=== PATIENT | male | born 1935 | race Caucasian/White ===

== ENCOUNTER 2016-11-25 09:29 | Observation (INO) | payer MEDICARE ==
[2016-11-25] VITALS (8 sets, daily range): BP systolic 121–141; BP diastolic 45–75; PULSE 60–77; RESP 15–20; O2SAT 96–99
[~2016-11-25] VITALS: Ht 175.3 cm; Wt 81.9 kg
[~2016-11-25 09:29] MED LIST: CHOL10008 PO; CITA10TA14 PO; FLC50T PO; METO25TA6 PO; MIRA25TA PO; OMEG-38 PO; PRO5 PO; WARF4TAB2 PO; juice plus PO
--- NOTE | 2016-11-25 09:39 | ED.REPORT ---
HPI-General Illness Date of Service Nov 25, 2016 ED Provider: Mateo Aden Patient is an 81 year old male with a hx of HTN and Afib with a pacemaker on Coumadin who presents to the ED complaining of chest pain onset a week ago. His pain started as intermittent R sided discomfort that has progressively gotten worse and is now radiating to the left side. The episodes last for a few minutes and are exacerbated with activity. Associated symptoms include dizziness and SOB with episodes. He denies abdominal pain, vomiting, diarrhea, fever, chills, cough, sputum, or any other symptoms. His dry box operator is Susan PCP Dr. Garcia. Nursing Notes Stated Complaint: HEART ISSUE Nursing Notes Reviewed: Yes Allergies: Coded Allergies: atorvastatin (Verified Allergy, Severe, PROBABLE REASON FOR THIS ADMISSSION 04/18, 01/13/16) prednisone (Verified Allergy, Severe, 01/13/16) ezetimibe (Verified Allergy, Intermediate, facial flushing, 01/13/16) Scheduled Flecainide Acetate (Flecainide Acetate) 50 Mg Tablet 50 MG PO BID Metoprolol Tartrate (Metoprolol Tartrate) 25 Mg Tablet 25 MG PO BID Mirabegron ER (Myrbetriq) 25 Mg Tablet 25 MG PO DAILY General Time Seen by MD: 09:38 Chief Complaint Chest pain Hx Obtained From: Patient, Spouse Arrived By: Walk-in Sudden in Onset?: No Onset Occurred: 1 week ago Symptom Duration: Since onset Past Medical History Past Medical History Notes: On Coumadin Past Medical History Afib HTN Arthritis Past Surgical History abd hernia repair R knee pacemaker insertion Smoking History Unknown if Ever Smoker Social History Other Social History: Ambulatory Status Independent Review of Systems Full Review of Systems Constitutional: Denies: Chills, Fever Respiratory: Reports: Shortness of breath, Denies: Non-productive cough, Prod cough, yellow Cardiovascular: Reports: Chest pain GI: Denies: Abdominal pain, Diarrhea, Vomiting Neurologic: Reports: Dizziness Complete sys rev & neg: except as marked. Physical Exam Vital Signs Vital Signs Date Time Temp Pulse Resp B/P Pulse Ox O2 Delivery O2 Flow Rate FiO2 11/25/16 11:45 36.8 77 20 121/45 99 Room Air 11/25/16 09:39 36.8 62 20 141/75 98 Room Air Initial VS: Reviewed Head / Eyes: Atraumatic, Normocephalic Respiratory: Breath sounds normal, Clear to auscultation, No respiratory distress Abdomen / GI: Soft, Non-tender Skin: Warm, Dry Neurologic: Alert, Oriented, Nonfocal Psychiatric: Mood/affect normal, Behavior normal, Normal thought content General/Constitutional: Awake, Alert, No acute distress Neck: Supple, Full range of motion, No JVD Cardiovascular: Heart rate NL Lower Extremity / Pelvis / MS: No edema Interpretation & Diagnostics Lab Results Interpretation Result Diagram: 11/25/16 0945 11/25/16 0945 Test 11/25/16 09:45 White Blood Count 6.7th/mm3 (3.8-10.1) Red Blood Count 4.84mil/mm3 (4.40-5.80) Hemoglobin 15.1g/dL (13.8-17.2) Hematocrit 45.1% (41.0-50.0) Mean Corpuscular Volume 93.2fL (81-100) Mean Corpuscular Hemoglobin 31.2pg (27.0-35.0) Mean Corpuscular Hemoglobin Concent 33.5% (32.0-37.0) Red Cell Distribution Width 13.1% (12.3-15.4) Platelet Count 171bil/L (150-400) Neutrophils (%) (Auto) 51.4% (40-74) Lymphocytes (%) (Auto) 37.2% (14-46) Monocytes (%) (Auto) 9.6% (4-12) Eosinophils (%) (Auto) 1.2% (0-5) Basophils (%) (Auto) 0.3% (0-3) Prothrombin Time 20.3sec (8.1-12.5) Prothromb Time International Ratio 1.87ratio Sodium Level 140mEq/L (134-144) Potassium Level 4.7mEq/L (3.5-5.2) Chloride Level 105mEq/L (97-108) Carbon Dioxide Level 22mmol/L (18-29) Blood Urea Nitrogen 36mg/dL (8-27) Creatinine 2.01mg/dL (0.76-1.27) Estimat Glomerular Filtration Rate 34mL/min (>59) Glucose Level 87mg/dL (60-99) Calcium Level 9.2mg/dL (8.5-10.1) Magnesium Level 2.2mg/dL (1.6-2.6) Total Bilirubin 0.6mg/dL (0.0-1.2) Aspartate Amino Transf (AST/SGOT) 20U/L (0-50) Alanine Aminotransferase (ALT/SGPT) 11U/L (0-44) Alkaline Phosphatase 59U/L (25-160) Troponin T < 0.010ug/L (0.0-0.011) Total Protein 7.1g/dL (6.4-8.4) Albumin 3.8g/dL (3.4-5.0) Hold Wagner Top Tube Received (Received) ECG Interpretation ECG Interpretation: Atrial-paced rhythm rate 60 Time: 09:59 Interpreted by: ED physician X-Ray Chest Interpretation Chest Xray Interpretation: IMPRESSION: Presumed prior smoking history, no sign of acute CHF, pacemaking device and leads appear normal. COPD, source of chest pain not found. Dictated by: Miko Cooley M.D. on 11/25/2016 at 10:19 Approved by: Miko Cooley M.D. on 11/25/2016 at 10:20 View: Portable, 1 view Interpretation / Wet Read by: Interpret - Radiologist Re-Eval/Medical Decision Med Decision/Clinical Course Symptoms may represent unstable angina. Progressive shortness of breath with chest pain relieved after nitroglycerin. Although his troponin is negative I suspect this patient should be admitted and have a provocative stress test. Time of Eval: 11:50 Re-Evaluation/Progress Note: Patient is pain free after nitro. Discussed ekg, lab, and imaging results. Discussed plan for admission. Patient understands and agrees with plan. All questions addressed at this time. Time of Eval: 12:50 Re-Evaluation/Progress Note: Discussed code status. He would like CPR if needed but decline Intubation or life support. Consultation : Referral / Consult Name: Radha Forrest DO Consulted With: Hospitalist Call Returned at: 12:36 Television Program Director: Will see patient, Agrees with eval, Agrees with plan, Accepts admit Note: Discussed pt's case. Accepts admit. Counseled Regarding: Diagnosis, Lab results, Need for admission Discharge & Departure Primary Impression: Unstable angina Disposition: ADMITTED TO HOSPITAL Discharge Condition All VS Reviewed: Yes Condition: Stable Referrals: Delfino Garcia MD (PCP) Scribe Attestation Portions of this note were transcribed by Magalys Ta. I, Dr. Aden personally performed the history, physical exam and medical decision-making; I reviewed and confirmed the accuracy of the information in the transcribed note. copies to: Delfino Garcia MD, Timothy S DO Nov 25, 2016 09:39 MAGALYS TA Nov 25, 2016 09:45 personally performed the history, physical exam and medical decision-making; I reviewed and confirmed the accuracy of the information in the transcribed note. copies to: Delfino Garcia MD, Timothy S DO Nov 25, 2016 09:39 MAGALYS TA Nov 25, 2016 09:45
[2016-11-25] MEDS ORDERED: Ondansetron 2 mg/mL 2 mL Inj IVPUSH ONE (09:50)
[2016-11-25 10:12] LABS: BASOPHILS % (AUTO) 0.3 % (0-3); EOSINOPHILS % (AUTO) 1.2 % (0-5); MONOCYTES % (AUTO) 9.6 % (4-12); Mean Corpuscular Hemoglobin 31.2 pg (27.0-35.0); Mean Corpuscular Volume 93.2 fL (81-100); NEUTROPHILS % (AUTO) 51.4 % (40-74); Platelet Count 171 bil/L (150-400)
--- NOTE | 2016-11-25 10:23 | DRSVH ---
PROCEDURE: X-RAY CHEST ONE VIEW, PORTABLE ([id number]) INDICATIONS: cp TECHNIQUE: One view of the chest was acquired. COMPARISON: [facility], CR, CHEST 1VW, 07/19/2013, 13:22. [facility], CR, CH EST 1VW (PORTABLE), 07/18/2013, 14:04. FINDINGS: Surgical changes and devices: Cardiac pacemaking device and dual chamber leads are in normal position . Lungs and pleura: No pleural effusions or pneumothorax. Lungs are abnormal, with pulmonary hyperexp ansion previously present and mild interstitial prominence, likely reflecting prior smoking history. Mediastinum: Mediastinal contours appear normal. Heart size is normal. Bones and chest wall: No suspicious bony lesions. Overlying soft tissues appear unremarkable. IMPRESSION: Presumed prior smoking history, no sign of acute CHF, pacemaking device and leads appear normal. COPD, source of chest pain not found. Dictated by: Miko Cooley M.D. on 11/25/2016 at 10:19 Approved by: Miko Cooley M.D. on 11/25/2016 at 10:20
[2016-11-25 10:28] LABS: INR 1.87 ratio
[2016-11-25 10:46] LABS: Magnesium 2.2 mg/dL (1.6-2.6)
[2016-11-25 10:51] LABS: TROPONIN T < 0.010 ug/L (0.0-0.011)
[2016-11-25] MEDS ORDERED: Alum-Mag Hydrox-Simeth 30 mL Suspension PO PRN ×2 (12:55→15:25)
[2016-11-25] MEDS ORDERED: Ondansetron 2 mg/mL 2 mL Inj IVPUSH PRN ×2 (12:55→15:25)
[2016-11-25] MEDS ORDERED: CITA20TA11 PO (13:16)
[2016-11-25] MEDS ORDERED: OMEG-38 PO (13:16)
[2016-11-25] MEDS ORDERED: FINA5TAB9 PO (13:16)
[2016-11-25] MEDS ORDERED: CHOL100045 PO (13:16)
[2016-11-25] MEDS ORDERED: Juice Plus PO (13:16)
[2016-11-25] MEDS ORDERED: WARF2.5T82 PO ×2 (13:16)
[2016-11-25] MEDS ORDERED: Polyethylene Glycol (PEG) 17 Gm Powder PO PRN (15:25)
[2016-11-25] MEDS ORDERED: Senna-Docusate 8.6-50 mg Tablet PO PRN (15:25)
[2016-11-25] MEDS ORDERED: Atropine 1 mg/10 mL (Code) Syringe IVPUSH PRN (15:25)
--- NOTE | 2016-11-25 15:42 | PCM.HPMED ---
Subjective Date of Service Nov 25, 2016 Primary Provider: Admitting Physician: Radha Forrest DO Primary Care Physician: Delfino Garcia MD Attending Physician: Radha Forrest DO Chief Complaint: Right chest pain and shortness of breath History of Present Illness: 81-year-old male with a history of sick sinus syndrome on Coumadin and biventricular pacer, hypertension, sleep apnea, hyperlipidemia who presented emergency department complaining of 3 days of lateral right-sided chest pain with radiation across anterior chest, associated with dizziness, weakness, and some intermittent shortness of breath. He states these have been going on for approximately 2-3 weeks, but usually do not radiate across his chest. Today he says it actually feels better than it did yesterday. Patient denies left-sided chest pain, radiation to the back neck or arm, and not associated with exertion or rest. He denies diaphoresis, nausea, abdominal pain, change in vision, or any substernal pain. Denies is associated with movement of his upper extremities warm positions laying down at night. No orthopnea or nocturnal dyspnea. Patient also has no history of clots, although he admits to sedentary lifestyle. Patient denies recent stress test last echo in the chart was from June 2014 which showed stage I diastolic dysfunction with a normal ejection fraction and without hypokinesis. Emergency department: Patient was given nitro which helped his pain; his EKG showed a paced atrial rhythm with a rate around 60. Chest x-ray was negative. Troponin negative. Other lab values were unremarkable except for an increase in his creatinine to 2.01, but this appears to be worsening over the last 6 years from 1.4-2.01. Review of Systems: Complete review of systems performed; pertinent positives and negatives per history of present illness, all other systems reviewed and are negative Allergies Coded Allergies: atorvastatin (Verified Allergy, Severe, PROBABLE REASON FOR THIS ADMISSSION 04/18, 01/13/16) prednisone (Verified Allergy, Severe, 01/13/16) ezetimibe (Verified Allergy, Intermediate, facial flushing, 01/13/16) Home Medications Flecainide Acetate (Flecainide Acetate) 50 Mg Tablet 50 MG PO BID Metoprolol Tartrate (Metoprolol Tartrate) 25 Mg Tablet 25 MG PO BID Mirabegron ER (Myrbetriq) 25 Mg Tablet 25 MG PO DAILY PMH Chronic kidney disease stage II Afib HTN Arthritis Sleep apnea on CPAP Periodic limb movement disorder Tachybradycardia syndrome with biventricular pacer Hyperlipidemia History of syncope Surgical History Pacemaker generator replacement June 2011 Bone marrow biopsy Right hip surgery Colonic polyps removed in 2004 Hernia repair Family History Father of cardiac disease at 73 Mom of colon cancer at age 85 Social History Hx Alcohol Use: No Hx Substance Use: No Hx Tobacco Use: No Smoking Status: Unknown if Ever Smoker Exam Vital Signs Vital Sign - Last Date Time Temp Pulse Resp B/P Pulse Ox O2 Delivery O2 Flow Rate FiO2 11/25/16 14:07 36.4 71 18 139/74 98 Room Air Exam General: Pleasant appearing age-appropriate male in no acute distress HEENT: PERRLA, EOMI, nonicteric, membranes moist Lymph: No lymphadenopathy Cardio: Regular rate and rhythm Respiratory: CTA bilaterally, no wheezes, no crackles Abdomen: Soft, positive bowel sounds, nontender, nondistended Extremities: No edema, 5/5 strength, sensation intact Psych: Appropriate mood and affect Neuro: CN II through XII grossly intact, sensation intact throughout Skin: No rash Lab and Diagnostics Result Diagram: 11/25/16 0945 11/25/16 0945 X-Rays, CTs and MRIs Chest x-ray Presumed prior smoking history, no sign of acute CHF, pacemaking device and leads appear normal. COPD, source of chest pain not found. Dictated by: Miko Cooley M.D. on 11/25/2016 at 10:19 12-lead ECG Atrial paced rhythm at 60 bpm Assessment & Plan 81-year-old male with multiple cardiac risk factors who presents with ongoing right-sided chest pain with new radiation across the chest that began 3 days ago. Patient was given nitroglycerin which seemed to help the pain. Possible unstable angina; presents on admission; ongoing -Patient's symptoms at rest and help with nitroglycerin could suggest coronary etiology -Other etiologies could be pulmonary embolism, however patient has chronic kidney disease and likely would not tolerate contrast -Attending deferred lower extremity Doppler; if patient should worsen will just do CTA -EKG was unchanged but patient is paced more than 98% at time according to Dr. Davis's records -Aspirin was given in emergency department -Discussed Plavix with my attending who recommended against starting it at this point -Nitroglycerin or any pain -Trend troponin -If pain recurs inpatient stress test with cardiology consult -Continue warfarin -Repeat EKG in the morning -Allergy to atorvastatin; will defer Acute on chronic kidney injury; presents on admission; ongoing -Worsening problem over the last 6 years with the creatinine of 2.01 -This may be his new baseline -We will continue to monitor -We will order renal ultrasound as there is not one in the chart EMRYL-patient will need to bring in his CPAP Sick sinus syndrome-continue home medications Hyperlipidemia-allergy to statins Disposition: Patient has been admitted to the general medical floor under observation Limited: No prolonged life support or intubation Pain Evaluation: Adequate Pain Control VTE Prophylaxis Indicated: VTE on Admission VTE Mechanical Devices: Intermittant Pneumatic CD Resuscitation Status: Limited Interventions (CPR but no intubation or life support) Time spent 40 min Attending Statement Seen and examined the patient at 9:00 PM, he is in no acute distress. Recommend adding a CT of Chest to r/o malignancy, lung nodules, gave him some albuterol for mild wheezing. Agree with the rest of the management as detailed above Maverick Edwards DO Nov 25, 2016 15:42 Radha Forrest DO Nov 26, 2016 00:45
--- NOTE | 2016-11-25 16:05 | PCM.CONPHA ---
Subjective Requesting Provider: Maverick Edwards DO Right chest pain and shortness of breath Reason for Pharmacy Consult: Anticoagulation Management Assessment/Plan Assessment/Plan Warfarin Dosing per Pharmacy for patient with A-Fib (goal INR 2-3): Patient is her with unstable angina. INR today is 1.87, below goal of 2-3. Normal warfarin home dose is 2.5mg SuMoWeThSa and 5mg TuFr. Will give warfarin 5mg today and order serial INRs. Pharmacy will monitor and dose daily. Plt 171 HCT 45 Beatriz Bazzi [facility] Nov 25, 2016 16:05
[2016-11-25 16:09] LABS: Creatine Kinase 60 U/L (21-232)
[2016-11-25] MEDS: Sodium Chloride LOK Flush 10 mL Syringe IVFLUSH SCH (16:30)
--- NOTE | 2016-11-25 16:39 | NUR ---
VASQUEZ explained to pt's and daughter, signed by . Pt in room but busy with RN. Copy of VASQUEZ and Medicare self administered medication information given to pt's . VASQUEZ was signed at 1302
[2016-11-25] MEDS: 0.9% Sodium Chloride 1,000 ML IV SCH (16:51)
--- NOTE | 2016-11-25 17:10 | DRSVH ---
[facility] [address] [place] [address] Echocardiogram Report Name: CONCHA HINOJOSA EStudy Date: 11/25/2016 Height: 69 in Hospital Exam Location: [facility] Weight: 170 lb Gender: Male BSA: 1.9 m2 : 1935 Age: 81 yrs BP: 139/74 mmHg Reason For Study: Chest pain Ordering Physician: Dr. Tyshawn Garcia Performed By: Latoya Sterling Referring Physician: HOSPITALIST [facility] Interpretation Summary Left ventricular wall thickness is mildly increased. Left ventricular systolic function is normal. The ejection fraction is estimated to be 60-65%. There has been no significant change since the previous study. Borderline right ventricular enlargement. There is a pacemaker lead in the right ventricle. Right ventricular systolic function is at the lower limits of normal. There has been no significant change since the previous study. The right ventricular systolic pressure is estimated at 34 mmHg assuming a right atrial pressure of 3 mm Hg. The left atrium is severely dilated. The right atrium is severely dilated. There is mild to moderate mitral regurgitation. Compared to the prior echo study, there has been an increase in the severity of mitral regurgitation. There is mild aortic regurgitation. There is moderate tricuspid regurgitation. Compared to the prior echo exam, there has been no change in TR severity. The aortic root is moderately dilated. The ascending aorta is moderately enlarged. There is a trivial pericardial effusion noted. Procedure: A two-dimensional transthoracic echocardiogram with color flow and Doppler was performed. The study quality was technically good. Comparison is made with the echocardiogram of 06/26/2014. The patient was in normal sinus rhythm during the exam. Left Ventricle: The left ventricle is normal in size. Left ventricular wall thickness is mildly increased. Left ventricular systolic function is normal. The ejection fraction is estimated to be 60-65%. There has been no significant change since the previous study. There are no focal wall motion abnormalities. Diastolic function could not be accurately assessed due to contradictory data. Right Ventricle: Borderline right ventricular enlargement. There is a pacemaker lead in the right ventricle. Right ventricular systolic function is at the lower limits of normal. There has been no significant change since the previous study. Atria: The left atrium is severely dilated. The right atrium is severely dilated. The interatrial septum is intact with no evidence for an atrial septal defect. Mitral Valve: The mitral valve leaflets appear mildly thickened, but open well. There is no mitral valve stenosis. There is mild to moderate mitral regurgitation. Compared to the prior echo study, there has been an increase in the severity of mitral regurgitation. PISA could not be calculated due to multiple jets. Aortic Valve: There is mild aortic valve sclerosis. There is no aortic valve stenosis. There is mild aortic regurgitation. Tricuspid Valve: The tricuspid valve is normal in structure and function. There is moderate tricuspid regurgitation. Compared to the prior echo exam, there has been no change in TR severity. The right ventricular systolic pressure is estimated at 34 mmHg assuming a right atrial pressure of 3 mm Hg. Pulmonic Valve: The pulmonic valve is normal in structure and function. There is trace pulmonic regurgitation. Great Vessels: The aortic root is moderately dilated. The ascending aorta is moderately enlarged. The aortic arch could not be visualized. The pulmonary artery is not well visualized, but is probably normal size. The IVC is of normal diameter and collapses greater than 50% with a sniff. This suggests a low right atrial pressure of 3 mm Hg. Pericardium/ Pleura There is a trivial pericardial effusion noted. There is no pleural effusion. MMode/2D Measurements & Calculations LVIDd: 3.9 cm LA dimension: 3.7 cm RA long axis LVOT diam LVIDs: 2.4 cm FS: 39.6 % LA A2 area: 30.4 cm RA area AoV Opening EPSS: 0.57 cm LA A4 area: 26.5 cm IVSd: 1.2 cm LA length (vol): 6.3 cm: 26.7 cm Ao root diam LVPWd: 1.2 cm LA vol: 108.6 ml RA vol LA vol index : 97.7 ml Aortic Jxn RA : 50.7 mm2 asc Aorta IVC diam: 1.8 cm Diam: 4.5 cm LV fisher. diameter/BSA LV sys. diameter/BSA (cm/m^2): 2.0 (cm/m^2): 1.2 Doppler Measurements & Calculations Ao V2 max: 152.2 cm/secMV E max shady MV E/A: 2.4 TR max shady Ao max P.3 mmHg : 74.2 cm/sec Med Peak E' Shady : 280.3 cm/sec Ao mean P.0 mmHg MV A max shady TR max PG LVOT Max Shady : 31.1 cm/sec E/E' med: 15.6 : 31.4 mmHg : 84.0 cm/sec Lat Peak E' Shady PA V2 max : 53.2 cm/sec FABIÁN(I,D): 2.4 cm E/E' lat: 10.6 PA mean PG sev ratio: 0.57 E/e' average : 0.60 mmHg AI P1/2t: 584.8 msec AI dec slope MV A dur: 0.19 sec : 243.7 cm/s2c MV dec time: 0.16 sec Ao V2 mean LV V1 max PG PA V2 mean : 92.5 cm/sec : 36.5 cm/sec Ao V2 VTI LV V1 VTI: 17.2 cmPA pr(Accel) : 44.1 mmHg FABIÁN(V,D): 2.3 cm2 FABIÁN indexed to BSA (cm^2/m^2): 1.2 Reading Physician:ERIC
--- NOTE | 2016-11-25 17:56 | NUR ---
Arrival to Floor, Chest Pain Patient arrives to floor from ED alert and oriented. After arrival from ED patient made complaint of "a twinge of chest pain when taking deep breaths", patient states that he does not have any chest pain when breathing normally. Hospitalist made aware, no new ordered received. As shift progressed patient states that chest pain with deep breaths has ceased. Will continue to monitor, care is ongoing. Addendum: 11/25/16 at 1925 by JOSE DE JESUS BECKETT RN Patient continues to deny chest pain, vital signs stable. Care is ongoing.
--- NOTE | 2016-11-25 18:00 | DRSVH ---
PROCEDURE: US RENAL SONOGRAM INDICATIONS: 81-year-old male with chronic kidney disease. TECHNIQUE: Real-time scanning was performed of the kidneys and bladder, with image documentation. COMPARISON: [facility], CT, KUB - CT (PN), 01/29/2014, 16:07. FINDINGS: Kidneys: Kidneys are normal in size. Right kidney measures 8.9 cm long; left kidney measures 9.7 cm long. Right renal cortical thickness is 1.2 cm; left renal cortical thickness is 1.3 cm. Renal cor tical echotexture is normal. No hydronephrosis or nephrolithiasis. No suspicious solid mass lesions . Left mid renal cortical anechoic 3.5 cm simple cyst is again noted. Bladder: Patient was unable to void during the examination. Pre-void images demonstrate no intralumin al masses or stones. On pre-void images, right and left ureteral jets are noted with color Doppler i nterrogation. Miscellaneous: No free pelvic fluid. IMPRESSION: 1. A post-renal cause for chronic renal insufficiency is not identified. 2. 3.5 cm mid left renal cortical simple cyst as before. Dictated by: Waylon Summers M.D. on 11/25/2016 at 17:54 Approved by: Waylon Summers M.D. on 11/25/2016 at 17:57
[2016-11-25 21:54] LABS: Creatine Kinase 45 U/L (21-232)
--- NOTE | 2016-11-25 21:59 | DRSVH ---
PROCEDURE: CT CHEST WITHOUT CONTRAST ([id number]) INDICATIONS: 81 year-old male with dyspnea and right chest pain. TECHNIQUE: Noncontrast 5 mm thick sections acquired from the pulmonary apices to the posterior costophrenic angl es. 7 mm thick coronal and sagittal MIP reformats were then acquired. For radiation dose reduction, the following was used: automated exposure control, adjustment of mA and/or kV according to patient size. COMPARISON: [facility], CT, BX LUNG OR MEDIASTINUM (PNL), 07/18/2013, 8:30. [facility], CT, CHEST W/O CONTRAST, 01/29/2014, 16:07. [facility], CT, CHEST W/O CONTRAS T, 07/08/2013, 8:49. FINDINGS: Image quality: Metallic streak artifact from left chest wall pulse generator obscures adjacent bone a nd soft tissue structures. Lungs and pleura: No acute air space opacities. Scattered bilateral peripheral pulmonary scarring i s present, as were scattered calcified granulomas. No pleural effusions or pneumothorax. Central and peripheral airways are patent and normal in caliber. Mediastinum: Heart size is normal. No pericardial effusion. No mediastinal adenopathy by size crit eria. Thoracic aorta and central pulmonary arteries are normal in size. Esophagus is normal in dave manisha, with moderate hiatal hernia. Bones and chest wall: No suspicious bony lesions. No vertebral body compression fractures. Several nonacute posterior right rib fractures are present. No axillary or supraclavicular adenopathy by siz e criteria. Thyroid gland is normal in overall size. Abdomen: Visualized upper abdominal solid organs and bowel loops appear normal in the absence of con trast. IMPRESSION: 1. No imaging explanation for right chest pain. 2. Moderate hiatal hernia. 3. Pulmonary remote granulomatous disease. Dictated by: Waylon Summers M.D. on 11/25/2016 at 21:48 Approved by: Wayoln Summers M.D. on 11/25/2016 at 21:57
[2016-11-25] MEDS: Albuterol 2.5 mg/3 mL Inhalation Solution NEB PRN (23:51)
[2016-11-26] VITALS (9 sets, daily range): BP systolic 116–146; BP diastolic 71–81; PULSE 60–79; RESP 16–18; O2SAT 93–97
[2016-11-26] MEDS: Sodium Chloride LOK Flush 10 mL Syringe IVFLUSH SCH ×3 (00:30→16:05)
--- NOTE | 2016-11-26 05:23 | NUR ---
IV Occluded Patients left peripheral IV became occluded and then infiltrated. A new IV peripheral IV was started on the patients right wrist. Patient had one complaint of chest pain for a very brief moment this shift. Patient stated that he felt a little short of breath and the hospitalist ordered a breathing treatment for the patient, which the patient stated allowed him to relax and breath better. Patient Tele Paced 68. Using Cpap while sleeping at night. Vitals stable. Care continues.
[2016-11-26 05:41] LABS: BASOPHILS % (AUTO) 0.1 % (0-3); MONOCYTES % (AUTO) 11.7 % (4-12); Mean Corpuscular Hemoglobin 31.4 pg (27.0-35.0); Mean Corpuscular Volume 93.6 fL (81-100); NEUTROPHILS % (AUTO) 52.4 % (40-74); Platelet Count 140 bil/L (150-400)
[2016-11-26 05:52] LABS: INR 2.09 ratio
[2016-11-26] MEDS: 0.9% Sodium Chloride 1,000 ML IV SCH ×2 (08:49→16:12)
[2016-11-26] MEDS: Albuterol 2.5 mg/3 mL Inhalation Solution NEB PRN (08:52)
[2016-11-26 18:25] LABS: APPEARANCE,URINE CLEAR (CLEAR,HAZY); COLOR,URINE YELLOW (YELLOW); OCCULT BLOOD,URINE NEGATIVE (NEGATIVE); UROBILINOGEN,URINE NORMAL (NORMAL)
--- NOTE | 2016-11-26 18:25 | NUR ---
Chest Pain Patient had one short episode of chest pain early this shift. Patient states "when I take a deep breath I feel some pain in my chest". Breathing treatment administered by respiratory therapy, patient reports that pain decreased. Patient has since denied any chest pain this shift. Patient alert and oriented, denies nausea and shortness of breath this shift. Care is ongoing.
--- NOTE | 2016-11-26 21:55 | PCM.PNMED ---
Subjective Date of Service Nov 26, 2016 Subjective Patient is seen and examined. +2 troponins are negative, stress this was not performed as cardiology felt his symptoms did not daily call for it. He says he is better after albuterol treatments wheezing has stopped. He states his pain is not related to food. He agrees that his pain seems to be noncardiac in nature Exam Vital Signs Vital Sign - Last Date Time Temp Pulse Resp B/P Pulse Ox O2 Delivery O2 Flow Rate FiO2 11/26/16 21:43 CPAP/BIPAP 11/26/16 20:10 37.1 79 18 126/75 96 11/25/16 23:48 21 Exam General: Pleasant appearing age-appropriate male in no acute distress HEENT: PERRLA, EOMI, nonicteric, membranes moist Lymph: No lymphadenopathy Cardio: Regular rate and rhythm Respiratory: CTA bilaterally, no wheezes, no crackles Abdomen: Soft, positive bowel sounds, nontender, nondistended Extremities: No edema, 5/5 strength, sensation intact Psych: Appropriate mood and affect Neuro: CN II through XII grossly intact, sensation intact throughout Skin: No rash IVs and Medications IV Fluids None Medications Reviewed: Medications were reviewed in detail Lab and Diagnostics Result Diagram: 11/26/16 0506 11/26/16 0506 X-Rays, CTs and MRIs Chest x-ray Presumed prior smoking history, no sign of acute CHF, pacemaking device and leads appear normal. COPD, source of chest pain not found. Dictated by: Miko Cooley M.D. on 11/25/2016 at 10:19 12-lead ECG Atrial paced rhythm at 60 bpm Assessment & Plan 81-year-old male with multiple cardiac risk factors who presents with ongoing right-sided chest pain with new radiation across the chest that began 3 days ago. Patient was given nitroglycerin which seemed to help the pain. 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 Esophageal contractions can be held with nitroglycerin. His asthma or COPD improved with albuterol and eased his chest pain. I visited with him in the evening and he says he only had chest pain in the morning once -CT was not performed due to low suspicion for PE based on his INR levels, patient is also allergic to IV contrast -- Telemonitoring showed no acute events overnight -EKG was unchanged but patient is paced more than 98% at time according to Dr. Davis's records -Aspirin was given in emergency department -Nitroglycerin or any pain -Trend troponin -If pain recurs inpatient stress test with cardiology consult -Continue warfarin, is therapeutic today -Repeat EKG in the morning -Allergy to atorvastatin; will defer -- Encouraged patient to ambulate to see if his symptoms would get worse, he is being monitored on the telemetry while he is walking. He seen walking in the hallways later in the day Acute on chronic kidney injury; presents on admission; improving -Worsening problem over the last 6 years with the creatinine of 2.01 -This may be his new baseline -We will continue to monitor -We will order renal ultrasound as there is not one in the chart: Post renal causes for seek it is not identified MERYL-patient will need to bring in his CPAP Sick sinus syndrome-continue home medications Hyperlipidemia-allergy to statins Disposition: Patient has been admitted to the general medical floor under observation, he will be discharged home tomorrow a.m. Limited: No prolonged life support or intubation Pain Evaluation: Adequate Pain Control VTE Mechanical Devices: Intermittant Pneumatic CD Resuscitation Status: Limited Interventions (CPR but no intubation or life support) Time spent 25 minutes Radha Forrest DO Nov 26, 2016 21:54
--- NOTE | 2016-11-27 00:22 | NUR ---
PAIN; no c/o pain. Sleeping peacefully.
[2016-11-27 00:25] VITALS: BP 144/79; PULSE 66; RESP 22; O2SAT 95
[2016-11-27 01:30] VITALS: BP 144/81; PULSE 72; RESP 20; O2SAT 96
[2016-11-27 05:20] VITALS: PULSE 61
[2016-11-27 07:25] LABS: INR 2.35 ratio
[2016-11-27] MEDS ORDERED: Pantoprazole 20 mg ER24 Tablet PO SCH (07:30)
[2016-11-27 07:41] VITALS: PULSE 66; RESP 16; O2SAT 96
[2016-11-27 07:55] VITALS: BP 139/78; PULSE 64; RESP 16; O2SAT 97
[2016-11-27] MEDS: Sodium Chloride LOK Flush 10 mL Syringe IVFLUSH SCH ×2 (08:06)
--- NOTE | 2016-11-27 10:15 | PCM.DIMED ---
Discharge Instructions Date of Service Nov 27, 2016 Dates of Hospitalization Nov 25, 2016 at 12:53 Discharge Diagnosis Discharge Diagnosis COPD, afib, HTN, CKD stage III, CAD Diet Discharge Diet: Heart Healthy Activity Discharge Activity: No restrictions Call your provider Call your provider for: Fever or Chills, Shortness of breath, Bleeding, Chest pain, Vomitting, Excessive diarrhea, Weakness (unilateral), Other Patient Instructions Follow-up plan F/U with PCP in one week Radha Forrest DO Nov 27, 2016 10:15
--- NOTE | 2016-11-27 10:16 | PCM.DC.MED ---
Discharge Summary Date of Service Nov 27, 2016 Dates of Hospitalization Date of Hospital Admission Nov 25, 2016 at 12:53 Date of Discharge: Nov 27, 2016 Providers: Admitting Physician: Radha Hughes DO Primary Care Physician: Delfino Garcia MD Attending Physician: Radha Hughes DO Diagnosis at Time of Discharge Diagnosis at Time of Discharge COPD, afib, HTN, CKD stage III, CAD Consultations None Procedures XRay, CTs & MRIs Chest x-ray Presumed prior smoking history, no sign of acute CHF, pacemaking device and leads appear normal. COPD, source of chest pain not found. Dictated by: Miko Cooley M.D. on 11/25/2016 at 10:19 ECG 12 Lead Atrial paced rhythm at 60 bpm Cardiac Echo Impression Echocardiogram Report Interpretation Summary Left ventricular wall thickness is mildly increased. Left ventricular systolic function is normal. The ejection fraction is estimated to be 60-65%. There has been no significant change since the previous study. Borderline right ventricular enlargement. There is a pacemaker lead in the right ventricle. Right ventricular systolic function is at the lower limits of normal. There has been no significant change since the previous study. The right ventricular systolic pressure is estimated at 34 mmHg assuming a right atrial pressure of 3 mm Hg. The left atrium is severely dilated. The right atrium is severely dilated. There is mild to moderate mitral regurgitation. Compared to the prior echo study, there has been an increase in the severity of mitral regurgitation. There is mild aortic regurgitation. There is moderate tricuspid regurgitation. Compared to the prior echo exam, there has been no change in TR severity. The aortic root is moderately dilated. The ascending aorta is moderately enlarged. There is a trivial pericardial effusion noted. Reading Physician:PM Brief History 81-year-old male with a history of sick sinus syndrome on Coumadin and biventricular pacer, hypertension, sleep apnea, hyperlipidemia who presented emergency department complaining of 3 days of lateral right-sided chest pain with radiation across anterior chest, associated with dizziness, weakness, and some intermittent shortness of breath. He states these have been going on for approximately 2-3 weeks, but usually do not radiate across his chest. Today he says it actually feels better than it did yesterday. Patient denies left-sided chest pain, radiation to the back neck or arm, and not associated with exertion or rest. He denies diaphoresis, nausea, abdominal pain, change in vision, or any substernal pain. Denies is associated with movement of his upper extremities warm positions laying down at night. No orthopnea or nocturnal dyspnea. Patient also has no history of clots, although he admits to sedentary lifestyle. Patient denies recent stress test last echo in the chart was from June 2014 which showed stage I diastolic dysfunction with a normal ejection fraction and without hypokinesis. Emergency department: Patient was given nitro which helped his pain; his EKG showed a paced atrial rhythm with a rate around 60. Chest x-ray was negative. Troponin negative. Other lab values were unremarkable except for an increase in his creatinine to 2.01, but this appears to be worsening over the last 6 years from 1.4-2.01. Hospital Course 81-year-old male with multiple cardiac risk factors who presents with ongoing right-sided chest pain with new radiation across the chest that began 3 days ago. Patient was given nitroglycerin which seemed to help the pain. 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 distinguish that from cardiac chest pain Possible unstable angina; presents on admission; ruled out -Patient's symptoms at rest and help with nitroglycerin could suggest coronary etiology, however he does have hiatal hernia and asthma. Esophageal contractions can be held with nitroglycerin. His asthma or COPD improved with albuterol and eased his chest pain. I visited with him in the evening and he says he only had chest pain in the morning once, he has had no recurrence of pain since 11/26 am and he is ambulating in the victor ways. tele monitoring reported no events -CT was not performed due to low suspicion for PE based on his INR levels, patient is also allergic to IV contrast -- Telemonitoring showed no acute events overnight -EKG was unchanged but patient is paced more than 98% at time according to Dr. Davis's records -Aspirin was given in emergency department -Nitroglycerin for any pain PRN -Trend troponin: 2 troponins were neg, discussed case with cardiology did do not feel this is cardiac chest pain. Stress test can be done later at the discretion of his process steward. -Continue warfarin, is therapeutic today -Repeat EKG in the morning -Allergy to atorvastatin; will defer -Encouraged patient to ambulate to see if his symptoms would get worse, he is being monitored on the telemetry while he is walking. He seen walking in the hallways later in the day -- The patient has a follow-up appointment with process steward Dr. Davis in November, he can obtain a stress test as an o/p per their instructions -- Echo cardiogram was performed: Increased LVH, increase in the severity of mitral regurgitation but but not too significantly different from prior Acute on chronic kidney injury; presents on admission; improving -Worsening problem over the last 6 years with the creatinine of 2.01 -This may be his new baseline -We will continue to monitor - renal ultrasound : Post renal causes for seek it is not identified MERYL-patient has not brought in his CPAP Sick sinus syndrome-continue home medications Hyperlipidemia-allergy to statins Limited: No prolonged life support or intubation Exam Vital Signs (Last) Date Time Temp Pulse Resp B/P Pulse Ox O2 Delivery O2 Flow Rate FiO2 11/27/16 07:55 36.4 64 16 139/78 97 Room Air 11/27/16 04:03 21 Exam General: Pleasant appearing age-appropriate male in no acute distress HEENT: PERRLA, EOMI, nonicteric, membranes moist Lymph: No lymphadenopathy Cardio: Regular rate and rhythm Respiratory: CTA bilaterally, no wheezes, no crackles Abdomen: Soft, positive bowel sounds, nontender, nondistended Extremities: No edema, 5/5 strength, sensation intact Psych: Appropriate mood and affect Neuro: CN II through XII grossly intact, sensation intact throughout Skin: No rash Test 11/25/16 09:45 11/25/16 20:53 11/26/16 05:06 11/26/16 12:15 Hemoglobin A1c 5.7% (4.8-5.6) Magnesium Level 2.2mg/dL (1.6-2.6) Total Bilirubin 0.6mg/dL (0.0-1.2) Aspartate Amino Transf (AST/SGOT) 20U/L (0-50) Alanine Aminotransferase (ALT/SGPT) 11U/L (0-44) Alkaline Phosphatase 59U/L (25-160) Total Protein 7.1g/dL (6.4-8.4) Albumin 3.8g/dL (3.4-5.0) Thyroid Stimulating Hormone (TSH) 2.410uIU/mL (0.450-4.500) Hold Wagner Top Tube Received (Received) Total Creatine Kinase 45U/L (21-232) Creatine Kinase MB 1.6ng/mL (0.0-10.4) Creatine Kinase MB % % (0.0-5.0) Troponin T 0.010ug/L (0.0-0.011) White Blood Count 6.7th/mm3 (3.8-10.1) Red Blood Count 4.23mil/mm3 (4.40-5.80) Hemoglobin 13.3g/dL (13.8-17.2) Hematocrit 39.6% (41.0-50.0) Mean Corpuscular Volume 93.6fL (81-100) Mean Corpuscular Hemoglobin 31.4pg (27.0-35.0) Mean Corpuscular Hemoglobin Concent 33.6% (32.0-37.0) Red Cell Distribution Width 12.8% (12.3-15.4) Platelet Count 140bil/L (150-400) Neutrophils (%) (Auto) 52.4% (40-74) Lymphocytes (%) (Auto) 34.7% (14-46) Monocytes (%) (Auto) 11.7% (4-12) Eosinophils (%) (Auto) 1.0% (0-5) Basophils (%) (Auto) 0.1% (0-3) Sodium Level 142mEq/L (134-144) Potassium Level 4.8mEq/L (3.5-5.2) Chloride Level 109mEq/L (97-108) Carbon Dioxide Level 21mmol/L (18-29) Blood Urea Nitrogen 37mg/dL (8-27) Creatinine 1.69mg/dL (0.76-1.27) Estimat Glomerular Filtration Rate 42mL/min (>59) Glucose Level 95mg/dL (60-99) Calcium Level 8.7mg/dL (8.5-10.1) Triglycerides Level 97mg/dL (0-149) Cholesterol Level 163mg/dL (100-199) LDL Cholesterol, Calculated 110.600mg/dL (0-99) VLDL Cholesterol 19.400mg/dL HDL Cholesterol 33mg/dL (>39) Cholesterol/HDL Ratio 4.94 (0.0-4.4) Urine Color Yellow (YELLOW) Urine Appearance Clear (CLEAR,HAZY) Urine pH 6.0 (5.0-8.0) Urine Specific [place] 1.015 (1.003-1.035) Urine Protein Negativemg/dL (NEG,TRACE) Urine Glucose (UA) Negativemg/dL (NEGATIVE) Urine Ketones Negativemg/dL (NEGATIVE) Urine Occult Blood Negative (NEGATIVE) Urine Nitrite Negative (NEGATIVE) Urine Bilirubin Negative (NEGATIVE) Urine Urobilinogen Normalmg/dL (NORMAL) Urine Leukocyte Esterase Negative (NEGATIVE) Urine RBC 0-2/hpf (0-2) Urine WBC 0-5/hpf (0-5) Urine Epithelial Cells None/hpf (NONE-MOD) Urine Crystals None seen (NONE SEEN) Urine Bacteria Few/hpf (NONE-FEW) Urine Hyaline Casts None/lpf (NONE) Urine Granular Casts None seen (NONE SEEN) Urine Waxy Casts None seen (NONE SEEN) Urine Red Blood Cell Casts None seen (NONE SEEN) Urine White Blood Cell Casts None seen (NONE SEEN) Urine Mucus None seen (None Seen) Urine Trichomonas None seen (NONE SEEN) Urine Yeast None (NONE SEEN) Urinalysis Comment None Urine Culture Reflexed Not indicated Hold Urine Received (Received) Test 11/27/16 06:45 Prothrombin Time 25.6sec (8.1-12.5) Prothromb Time International Ratio 2.35ratio Discharge Medications Discharge Medications ([Juice Plus]) 2 CAPSULE PO BID (Reported) Cholecalciferol (Vitamin D3) (Vitamin D) 1,000 Unit Capsule 1,000 UNIT PO DAILY (Reported) Citalopram (Citalopram) 20 Mg Tablet 30 MG PO QAM (Reported) Finasteride (Finasteride) 5 Mg Tablet 5 MG PO QAM (Reported) Flecainide Acetate (Flecainide Acetate) 50 Mg Tablet 50 MG PO BID (Reported) Metoprolol Tartrate (Metoprolol Tartrate) 25 Mg Tablet 12.5 MG PO BID (Reported ) Hallie-3/Dha/Epa/Fish Oil (Fish Oil 1,000 mg Softgel) 1 Each Capsule 1 EACH PO DAILY (Reported) Warfarin Sodium (Warfarin Sodium) 2.5 Mg Tablet 2.5 MG PO ,Mon,Mon,, ( Reported) Warfarin Sodium (Warfarin Sodium) 2.5 Mg Tablet 5 MG PO ,Mon (Reported) As needed Albuterol Sulfate (Ventolin HFA Inhaler) 200 Puff/18 Gm Inhaler 1 PUFF INH Q4 PRN PRN For Wheezing Prescribed by: RADHA HUGHES DO Followup Plan Follow-up plan F/U with PCP in one week Discharge Diet: Heart Healthy Discharge Activity: No restrictions Time spent 35 min Radha Hughes DO Nov 27, 2016 10:15
[2016-11-27] MEDS ORDERED: ALBU18HF INH (10:17)
--- NOTE | 2016-11-27 10:34 | NUR ---
Social Work: Initial Assessment/Readiness for Discharge/Multi-Disciplinary Rounds D: EMR reviewed. Please see Initial Assessment linked to this note for more information. Pt is an 81 y/o male admitted [facility] for unstable angina per H&P. Pt has a readmit risk score of 2. SW met with pt at bedside to conduct initial assessment. Pt was alert and oriented x3. SW explained role and wrote phone number on white board. SW provided "Your Discharge Planning Checklist" and encouraged pt to contact SW for any discharge planning questions. Pt's insurance is Medicare and [employer] Supplemental. PCP is Delfino Garcia MD. Pt gave verbal consent to contact spouse Jeovany Stewart [phone] for discharge planning. DPOA/advanced directive ppw discussed - ppw completed and SW encouraged pt to provide a copy to the hospital. Pt owns a walker, cane, and CPAP machine. Pt does not use any DME for ambulation. Pt is independent with all ADLs. Pt discussed in multidisciplinary rounds. Per multidisciplinary rounds, pt is medically stable for discharge home today - no SW needs identified, no MD orders received. A: SW assessed pt's capacity for self-care. SW does not have any concerns for pt's capacity for self-care. Pt is independent with ADLs at baseline. Pt does not have any concerns regarding discharge at this time. Pt feels safe discharging home and will remain independent. P: Pt to discharge home today with spouse to transport via POV. No SW needs identified. No MD orders received. SW will continue to follow for needs. SAMUEL Sandhu Addendum: 11/27/16 at 1037 by MORE FIERRO Amended: Links added.
--- NOTE | 2016-11-27 11:19 | NUR ---
Social Work: Discharge D: EMR reviewed. Pt is on day 2 of hospitalization. Per multidisciplinary rounds, pt is medically stable for discharge home today. No SW needs identified. No MD orders received. A: Pt who is independent at baseline P: Pt to discharge home today with spouse to transport via POV. No SW needs identified. No MD orders received. SAMUEL Sandhu
--- NOTE | 2016-11-27 11:27 | NUR ---
Discharge Pt. was discharged to home and his came and picked Pt. up. pt. was given information on new prescription and was reminded that Dr. Forrest faxed his prescriptions to his pharmacy. Pt. said they will pick it up tomorrow but I recommended to supervisor opening and picking prescription today if possible since it is a PRN q4hr medication for breathing. Pt. stated "we will see once we start driving." Pt. took all his belongings from room 1024 [facility] as well as his CPAP machine. IV DC'D x1 intact and asymptomatic. Pt. was reminded to make a follow up appointment 1 week from now with his PCP as soon as he can, Pt. stated they would call tomorrow morning. Pt. was wheeled out of the hospital.
== END 2016-11-27 11:25 | disposition home or self-care (01) ==
LOC: SED 09:29 → OSC 12:53
PROVIDERS: ADMIT Family Medicine; ATTEND Family Medicine
DX: J44.9 Chronic obstructive pulmonary disease, unspecified (principal); I48.91 Unspecified atrial fibrillation; I25.110 Atherosclerotic heart disease of native coronary artery with unstable angina pectoris; I12.9 Hypertensive chronic kidney disease with stage 1 through stage 4 chronic kidney disease, or unspecified chronic kidney disease; N18.3 Chronic kidney disease, stage 3 (moderate); I49.5 Sick sinus syndrome; G47.33 Obstructive sleep apnea (adult) (pediatric); E78.5 Hyperlipidemia, unspecified; M19.90 Unspecified osteoarthritis, unspecified site; G47.61 Periodic limb movement disorder; Z95.0 Presence of cardiac pacemaker; Z79.01 Long term (current) use of anticoagulants; Z79.51 Long term (current) use of inhaled steroids
CPT/HCPCS: 36415; 71010; 71250; 76770; 80048; 80053; 80061; 81000; 82550; 82553; 83036; 83735; 84443; 84484; 85025; 85610; 93005; 94640; 94664; 94799; 99285; C8929; G0378; J7030; J7613